=== PATIENT | female | born 1985 | race Caucasian/White ===

== ENCOUNTER 2018-03-26 17:31 | Emergency (ER) | payer OTHER ==
[2018-03-26] MEDS: ONDANSETRON (ODT) 4 MG TAB ODT (18:47)
[2018-03-26] MEDS: MECLIZINE 12.5 MG TAB PO (18:47)
== END 2018-03-26 19:15 | disposition home or self-care (01) ==
LOC: FTE 17:31
DX: R42 Dizziness and giddiness (principal); R11.0 Nausea
CPT/HCPCS: 99283